=== PATIENT | female | born 1965 | race African-American/Black ===

== ENCOUNTER 2024-04-11 15:26 | Emergency (ER) | payer SELFPAY ==
[2024-04-11 15:25] VITALS: BP 133/97; PULSE 80; RESP 22; TEMP 36.8; O2SAT 100
[2024-04-11 15:37] VITALS: PULSE 82
[2024-04-11 16:34] VITALS: BP 115/82; PULSE 78; RESP 16; O2SAT 100
--- NOTE | 2024-04-11 22:26 | ED.SEIZURE ---
HPI - Seizure General Chief Complaint: Seizure Stated Complaint: seizure Time Seen by Provider: 04/11/24 16:06 History of Present Illness HPI Narrative: 59-year-old hospice patient presenting to the emergency department via EMS from a local restaurant for concerns of a possible seizure. Patient has a history of renal failure not on dialysis, pancreatic failure, congestive heart failure. patient had a witnessed episode of what appeared to be transient mental status changes and unresponsiveness while eating. She regained consciousness quickly and arrives today via EMS. Patient was just discharged from another facility and family members are at bedside. Patient does not want any kind of workup here in the emergency department and wishes to be discharged. patient has no complaints at this time and is awake alert oriented, her own medical decision maker and presently on hospice. Review of Systems Review of Systems: as reviewed above in HPI. Exam Narrative: GENERAL: [Well-appearing, well-nourished, and in no acute distress.] HEAD: [Normocephalic, atraumatic.] EYES: [PERRLA and EOMI.] ENT: Nares clear, no rhinorrhea or epistaxis. Mucous membranes moist. NECK: Supple. CHEST: [Clear to auscultation. No respiratory distress.] HEART: [Regular rate and rhythm]. No murmur heard. [Normal peripheral pulses.] ABDOMEN: [Soft, nondistended], [nontender], [No rigidity or guarding] EXTREMITIES: Normal range of motion. [No edema.] SKIN: Warm, dry, no rash. NEURO: [No focal deficits]. Alert and oriented [x3.] PSYCH: [Normal mood and affect.] Course Vital Signs Vital signs: Vital Signs Temperature 36.8 C 04/11/24 15:25 Pulse Rate 80 04/11/24 15:25 Respiratory Rate 22 H 04/11/24 15:25 Blood Pressure 133/97 H 04/11/24 15:25 Pulse Oximetry 100 04/11/24 15:25 Oxygen Delivery Room Air 04/11/24 15:25 Temperature 36.8 C 04/11/24 15:25 Pulse Rate 78 04/11/24 16:34 Respiratory Rate 16 04/11/24 16:34 Blood Pressure 115/82 04/11/24 16:34 Pulse Oximetry 100 04/11/24 16:34 Oxygen Delivery Room Air 04/11/24 16:34 MDM - Seizure MDM Narrative Medical decision making narrative: 59-year-old female presently on hospice care presenting to the emergency department via EMS for transient mental status changes a potential seizure-like activity. Patient is at her baseline mentation presently and awake alert oriented. She has a history of CHF, renal failure not going on dialysis, pancreatic failure. She is on hospice care per the patient and family member at bedside which is her daughter. Patient has no acute complaints right now, wishes to be discharged, and go home. Given that she is a hospice patient and has full decision-making capacity, at normal mentation, and expressing desire for no workup I believe she can be discharged at this time. Medical Records Attestation: I reviewed the patient's medical records. Discharge Plan Discharge Clinical Impression: Seizure-like activity, Hospice care patient Patient Disposition: Home, Self-Care Condition: Stable Instructions: Antibiotic Form Additional Instructions: return at any point if you wish to be evaluated Patient Language: Tam[place] Time of Disposition: 16:34
== END 2024-04-11 17:09 | disposition hospice, home (50) ==
LOC: ANHED 16:44
PROVIDERS: Emergency Provider Student in an Organized Health Care Education/Training Program
DX: G40.89 Other seizures (principal); N19 Unspecified kidney failure; I50.9 Heart failure, unspecified; K85.90 Acute pancreatitis without necrosis or infection, unspecified
CPT/HCPCS: 99284